=== PATIENT | female | born 1980 | race Caucasian/White ===

== ENCOUNTER 2017-04-19 11:47 | Inpatient (IN) | payer MEDICAID, OTHER ==
[~2017-04-19] VITALS: Ht 167.6 cm; Wt 218.4 kg
[~2017-04-19 11:47] MED LIST: ARIP15TA3 PO; CLON.5 PO; LAMO100 PO; NYST30OI6 TP; RIVA10 PO; SERT100T12 PO
[2017-04-19] MEDS ORDERED: OMEG1CAP82 PO (12:01)
[2017-04-19] MEDS ORDERED: PYRI100T2 PO (12:01)
[2017-04-19] MEDS ORDERED: IRON-24 PO (12:01)
[2017-04-19] MEDS ORDERED: SERT100T12 PO (12:01)
[2017-04-19] MEDS ORDERED: LEVO88TA4 PO (12:01)
[2017-04-19] MEDS ORDERED: GEMF600T3 PO (12:01)
[2017-04-19] MEDS ORDERED: FOLI0.8T PO (12:01)
[2017-04-19] MEDS ORDERED: ACET600C PO (12:01)
[2017-04-19] MEDS ORDERED: NYST15PO3 TP (12:01)
[2017-04-19 13:16] LABS: BASOPHILS # (AUTO) 0.03 K/uL (0.00-0.20); BASOPHILS % (AUTO) 0.4 % (0.0-2.0); EOSINOPHILS # (AUTO) 0.15 K/uL (0.00-0.70); EOSINOPHILS % (AUTO) 1.87 % (1.0-6.0); HEMATOCRIT 37.7 % (36-46); HEMOGLOBIN 12.6 g/dL (12.0-16.0); LYMPHOCYTES # (AUTO) 1.7 K/uL (1.0-4.8); LYMPHOCYTES % (AUTO) 21.4 % (22.0-44.0); MEAN CORPUSCULAR HEMOGLOBIN 29.1 pg (26.0-34.0); MEAN CORPUSCULAR HGB CONC 33.3 G/dL (31.0-37.0); MEAN CORPUSCULAR VOLUME 87 fL (80-100); MONOCYTES # (AUTO) 0.4 K/uL (0.1-1.0); MONOCYTES % (AUTO) 4.6 % (2.0-9.0); NEUTROPHILS # (AUTO) 5.6 K/uL (1.8-7.7); NEUTROPHILS % (AUTO) 71.7 % (40.0-70.0); PLATELET COUNT (AUTO) 254 K/uL (150-450); RED BLOOD CELL COUNT(AUTO) 4.33 MIL/uL (4.00-5.20); RED CELL DISTRIBUTION WIDTH 14.4 % (11.5-14.5); WHITE BLOOD COUNT (AUTO) 7.9 K/uL (4.5-11.0)
[2017-04-19 13:26] LABS: ANION GAP 11 mmol/L (8-16); CARBON DIOXIDE 25 mmol/L (22-29); CHLORIDE 105 mmol/L (98-107); CREATININE 0.61 mg/dL (0.60-1.30); GLOMERULAR FILTR. RATE CALC > 60 mL/min (>60); POTASSIUM 3.9 mmol/L (3.5-5.1); SODIUM SERUM 141 mmol/L (136-145); UREA NITROGEN, BLOOD 10 mg/dL (7-18)
[2017-04-19 13:34] LABS: ALANINE AMINOTRANSFERASE 57 U/L (12-78); ALBUMIN 3.1 g/dL (3.4-5.0); ASPARTATE AMINOTRANSFERASE 23 U/L (15-37); BILIRUBIN,TOTAL 0.3 mg/dL (0.1-1.0); TOTAL PROTEIN, SERUM 7.2 g/dL (6.4-8.2)
[2017-04-19] MEDS ORDERED: LEVO137T2 PO (13:55)
[2017-04-19] MEDS ORDERED: CLON1 PO (13:55)
[2017-04-19] MEDS ORDERED: RIVA20TA PO (13:55)
[2017-04-19] MEDS ORDERED: LORazepam 2 MG TABLET PO ONE (14:00)
[2017-04-19] MEDS ORDERED: ARIPiprazole 10 MG TABLET PO ONE (14:00)
[2017-04-19] MEDS ORDERED: HALOPERIDOL 5 MG TABLET PO PRN (14:30)
[2017-04-19] MEDS ORDERED: ClonazePAM 0.5 MG TABLET PO SCH (17:00)
[2017-04-19 17:08] VITALS: BP 134/95
[2017-04-19] MEDS ORDERED: CloNIDine HCL 0.1 MG TABLET PO PRN (18:15)
[2017-04-19] MEDS: SERTRALINE HCL 100 MG TABLET PO SCH (20:32)
[2017-04-19] MEDS ORDERED: SERTRALINE HCL 100 MG TABLET PO SCH (21:00)
[2017-04-19 22:46] LABS: APPEARANCE,URINE TURBID (CLEAR); GLUCOSE, URINE (UA) NEGATIVE (NEGATIVE); KETONES,URINE NEGATIVE (NEGATIVE); LEUKOCYTE ESTERASE ,URINE SMALL (NEGATIVE); OCCULT BLOOD,URINE NEGATIVE (NEGATIVE); PH,URINE 5.5 (5.0-8.0); PROTEIN,URINE NEGATIVE (NEGATIVE)
[2017-04-19 22:49] LABS: ADD UA MICROSCOPIC YES
[2017-04-19 22:54] LABS: AMORPHOUS SEDIMENT,UR Many /LPF (None Seen); RBC,URINE None Seen /HPF (0-2); WBC,URINE 0-2 /HPF (0-5)
[2017-04-20] MEDS: LEVOTHYROXINE SODIUM 137 MCG TABLET PO SCH (06:43)
[2017-04-20] MEDS: GEMFIBROZIL 600 MG TABLET PO SCH (06:43)
[2017-04-20 08:15] VITALS: BP 124/77
[2017-04-20] MEDS: ARIPiprazole 15 MG TABLET PO SCH (09:10)
[2017-04-20] MEDS: LamoTRIgine 100 MG TABLET PO SCH (09:10)
[2017-04-20] MEDS: NYSTATIN 15 GM POWDER BOTTLE TP SCH ×2 (09:12→16:15)
[2017-04-20 16:15] VITALS: BP 130/84
[2017-04-20] MEDS: LORazepam 2 MG TABLET PO PRN (16:15)
[2017-04-20] MEDS: RIVAROXABAN 20 MG TABLET PO SCH (17:35)
[2017-04-20] MEDS: ClonazePAM 0.5 MG TABLET PO SCH (20:22)
[2017-04-20] MEDS: SERTRALINE HCL 100 MG TABLET PO SCH (20:22)
[2017-04-20] MEDS: ZOLPIDEM TARTRATE 10 MG TABLET PO PRN (21:45)
[2017-04-21] MEDS: GEMFIBROZIL 600 MG TABLET PO SCH (06:38)
[2017-04-21] MEDS: LEVOTHYROXINE SODIUM 137 MCG TABLET PO SCH (06:38)
[2017-04-21 08:15] VITALS: BP 119/71
[2017-04-21] MEDS: NYSTATIN 15 GM POWDER BOTTLE TP SCH ×2 (08:29→17:06)
[2017-04-21] MEDS: ARIPiprazole 15 MG TABLET PO SCH (08:29)
[2017-04-21] MEDS: LamoTRIgine 100 MG TABLET PO SCH (08:29)
[2017-04-21] MEDS: ACETAMINOPHEN 325 MG TABLET PO PRN (14:30)
[2017-04-21 16:52] VITALS: BP 116/73
[2017-04-21] MEDS: RIVAROXABAN 20 MG TABLET PO SCH (18:05)
[2017-04-21] MEDS: SERTRALINE HCL 100 MG TABLET PO SCH (20:22)
[2017-04-21] MEDS: ClonazePAM 0.5 MG TABLET PO SCH (20:22)
[2017-04-21] MEDS: ZOLPIDEM TARTRATE 10 MG TABLET PO PRN (21:13)
[2017-04-22 04:20] VITALS: BP 133/91
[2017-04-22] MEDS: ACETAMINOPHEN 325 MG TABLET PO PRN (04:27)
[2017-04-22] MEDS: GEMFIBROZIL 600 MG TABLET PO SCH (06:41)
[2017-04-22] MEDS: LEVOTHYROXINE SODIUM 137 MCG TABLET PO SCH (06:41)
[2017-04-22] MEDS: LamoTRIgine 100 MG TABLET PO SCH (08:50)
[2017-04-22] MEDS: NYSTATIN 15 GM POWDER BOTTLE TP SCH ×2 (08:50→17:30)
[2017-04-22] MEDS: ARIPiprazole 15 MG TABLET PO SCH (08:50)
[2017-04-22 09:35] VITALS: BP 136/93
[2017-04-22] MEDS: RIVAROXABAN 20 MG TABLET PO SCH (17:27)
[2017-04-22] MEDS: LORazepam 2 MG TABLET PO PRN (18:29)
[2017-04-22 20:22] VITALS: BP 142/85
[2017-04-22] MEDS: ClonazePAM 0.5 MG TABLET PO SCH (20:51)
[2017-04-22] MEDS: SERTRALINE HCL 100 MG TABLET PO SCH (20:52)
[2017-04-22] MEDS: ZOLPIDEM TARTRATE 10 MG TABLET PO PRN (21:04)
[2017-04-23] MEDS: GEMFIBROZIL 600 MG TABLET PO SCH (06:45)
[2017-04-23] MEDS: LEVOTHYROXINE SODIUM 137 MCG TABLET PO SCH (06:45)
[2017-04-23 08:17] VITALS: BP 120/86
[2017-04-23] MEDS: LamoTRIgine 100 MG TABLET PO SCH (08:49)
[2017-04-23] MEDS: ARIPiprazole 15 MG TABLET PO SCH (08:50)
[2017-04-23] MEDS: NYSTATIN 15 GM POWDER BOTTLE TP SCH (08:50)
[2017-04-23] MEDS: LORazepam 2 MG TABLET PO PRN (08:51)
[2017-04-23 10:40] LABS: CHOL/HDL RATIO 6.3 (3.9-5.7)
== END 2017-04-23 13:15 | disposition home or self-care (01) | DRG 751 ==
LOC: EMS 11:48 → 3EI 16:11
PROVIDERS: ADMIT Psychiatry & Neurology Child & Adolescent Psychiatry; ATTEND Psychiatry & Neurology Child & Adolescent Psychiatry
DX: F33.2 Major depressive disorder, recurrent severe without psychotic features (principal); R45.851 Suicidal ideations; E66.01 Morbid (severe) obesity due to excess calories; E03.9 Hypothyroidism, unspecified; E78.5 Hyperlipidemia, unspecified; F40.00 Agoraphobia, unspecified; G47.33 Obstructive sleep apnea (adult) (pediatric); I10 Essential (primary) hypertension; K21.9 Gastro-esophageal reflux disease without esophagitis; N39.0 Urinary tract infection, site not specified; Z79.01 Long term (current) use of anticoagulants; Z81.8 Family history of other mental and behavioral disorders; Z86.59 Personal history of other mental and behavioral disorders; Z86.711 Personal history of pulmonary embolism; Z91.5 Personal history of self-harm
CPT/HCPCS: 99285; G0480

== ENCOUNTER 2018-06-30 11:55 | Inpatient (IN) | payer MEDICAID, OTHER ==
[~2018-06-30] VITALS: Ht 167.6 cm; Wt 219.6 kg
[~2018-06-30 11:55] MED LIST changes: +ARIP15TA2 PO; -ARIP15TA3 PO; -CLON.5 PO; +CLON1 PO; +GEMF600T5 PO; +LEVO137T2 PO; -RIVA10 PO; +RIVA20TA PO
[2018-06-30 12:53] LABS: BASOPHILS % (AUTO) 0.9 % (0.0-2.0); EOSINOPHILS % (AUTO) 2.4 % (1.0-6.0); HEMATOCRIT 40.5 % (36-46); HEMOGLOBIN 13.4 g/dL (12.0-16.0); LYMPHOCYTES # (AUTO) 1.6 K/uL (1.0-4.8); LYMPHOCYTES % (AUTO) 20.8 % (22.0-44.0); MEAN CORPUSCULAR HEMOGLOBIN 30.1 pg (26.0-34.0); MEAN CORPUSCULAR VOLUME 91 fL (80-100); MONOCYTES # (AUTO) 0.4 K/uL (0.1-1.0); MONOCYTES % (AUTO) 5.7 % (2.0-9.0); NEUTROPHILS # (AUTO) 5.4 K/uL (1.8-7.7); NEUTROPHILS % (AUTO) 70.2 % (40.0-70.0); PLATELET COUNT (AUTO) 316 K/uL (150-450); RED BLOOD CELL COUNT(AUTO) 4.45 MIL/uL (4.00-5.20); RED CELL DISTRIBUTION WIDTH 13.2 % (11.5-14.5)
[2018-06-30] MEDS ORDERED: ONDANSETRON HCL 4 MG TABLET PO ONE (13:00)
[2018-06-30 13:05] LABS: ANION GAP 6 mmol/L (8-16); CALCIUM, TOTAL 8.8 mg/dL (8.8-10.5); CARBON DIOXIDE 29 mmol/L (22-29); CHLORIDE 101 mmol/L (98-107); CREATININE 0.68 mg/dL (0.60-1.30); GLOMERULAR FILTR. RATE CALC > 60 mL/min (>60); GLUCOSE,RANDOM 114 mg/dL (70-110); POTASSIUM 4.4 mmol/L (3.5-5.1); SODIUM SERUM 136 mmol/L (136-145); UREA NITROGEN, BLOOD 16 mg/dL (7-18)
[2018-06-30 13:11] LABS: ALANINE AMINOTRANSFERASE 28 U/L (12-78); ALBUMIN 3.6 g/dL (3.4-5.0); ALKALINE PHOSPHATASE 61 U/L (46-116); ASPARTATE AMINOTRANSFERASE 16 U/L (15-37); BILIRUBIN,TOTAL 0.4 mg/dL (0.1-1.0); TOTAL PROTEIN, SERUM 8.2 g/dL (6.4-8.2)
[2018-06-30] MEDS ORDERED: QUEtiapine FUMARATE 100 MG TABLET PO PRN (13:45)
[2018-06-30] MEDS ORDERED: LOPERAMIDE HCL 2 MG CAPSULE PO PRN (13:45)
[2018-06-30] MEDS ORDERED: MAGNESIUM HYDROXIDE SUSPENSION 30 ML UDCUP PO PRN (13:45)
[2018-06-30] MEDS ORDERED: ZOLPIDEM TARTRATE 10 MG TABLET PO PRN (13:45)
[2018-06-30] MEDS ORDERED: GuaiFENesin/D-METHORPHAN [SUGAR-FREE] 200-20MG/10 ML SYRUP UDCUP PO PRN (13:45)
[2018-06-30] MEDS ORDERED: TUBERCULIN, PURIFIED PROTEIN DERIVATIVE 5 TU/0.1 ML SYG ID ONE (13:45)
[2018-06-30] MEDS ORDERED: HydrOXYzine PAMOATE 50 MG CAPSULE PO PRN (13:45)
[2018-06-30] MEDS ORDERED: MAG HYDROX/AL HYDROX/SIMETH ES 30 ML SUSPENSION UDCUP PO PRN (13:45)
[2018-06-30] MEDS ORDERED: LORazepam 2 MG TABLET PO PRN (13:45)
[2018-06-30] MEDS ORDERED: PROMETHAZINE HCL 25 MG TABLET PO PRN (13:45)
[2018-06-30 14:08] LABS: HCG,QUANTITATIVE < 1 mIU/mL (0-6)
[2018-06-30] MEDS: THIAMINE HCL 100 MG TABLET PO SCH (16:54)
[2018-06-30 17:33] VITALS: BP 133/87
[2018-06-30] MEDS: ARIPiprazole 15 MG TABLET PO SCH (20:37)
[2018-06-30] MEDS ORDERED: LamoTRIgine 100 MG TABLET PO SCH ×2 (21:00)
[2018-06-30] MEDS ORDERED: ARIPiprazole 15 MG TABLET PO SCH (21:00)
[2018-07-01 06:45] LABS: BASOPHILS % (AUTO) 0.7 % (0.0-2.0); EOSINOPHILS % (AUTO) 2.4 % (1.0-6.0); LYMPHOCYTES # (AUTO) 2.1 K/uL (1.0-4.8); MEAN CORPUSCULAR HEMOGLOBIN 29.9 pg (26.0-34.0); MEAN CORPUSCULAR HGB CONC 33.4 G/dL (31.0-37.0); MEAN CORPUSCULAR VOLUME 89 fL (80-100); MONOCYTES # (AUTO) 0.5 K/uL (0.1-1.0); MONOCYTES % (AUTO) 6.6 % (2.0-9.0); NEUTROPHILS # (AUTO) 4.5 K/uL (1.8-7.7); NEUTROPHILS % (AUTO) 61.3 % (40.0-70.0); PLATELET COUNT (AUTO) 292 K/uL (150-450); RED BLOOD CELL COUNT(AUTO) 4.03 MIL/uL (4.00-5.20); RED CELL DISTRIBUTION WIDTH 13.5 % (11.5-14.5)
[2018-07-01] MEDS: LEVOTHYROXINE SODIUM 137 MCG TABLET PO SCH (07:01)
[2018-07-01] MEDS: GEMFIBROZIL 600 MG TABLET PO SCH (07:01)
[2018-07-01 07:03] LABS: HEMOGLOBIN A1C 5.8 % (4.5-6.2)
[2018-07-01 07:09] LABS: ALANINE AMINOTRANSFERASE 29 U/L (12-78); ALBUMIN 3.3 g/dL (3.4-5.0); ALKALINE PHOSPHATASE 52 U/L (46-116); ANION GAP 5 mmol/L (8-16); ASPARTATE AMINOTRANSFERASE 17 U/L (15-37); BILIRUBIN,TOTAL 0.3 mg/dL (0.1-1.0); CALCIUM, TOTAL 8.7 mg/dL (8.8-10.5); CARBON DIOXIDE 29 mmol/L (22-29); CHLORIDE 103 mmol/L (98-107); CHOL/HDL RATIO 5.4 (3.9-5.7); CHOLESTEROL 130 mg/dL (131-200); CREATININE 0.76 mg/dL (0.60-1.30); FREE T4 (FREE THYROXINE) 0.86 ng/dL (0.76-1.46); GLOMERULAR FILTR. RATE CALC > 60 mL/min (>60); GLUCOSE,RANDOM 113 mg/dL (70-110); HDL CHOLESTEROL 24 mg/dL (40-60); LDL CHOL (CALC.) 81 mg/dL (0-130); POTASSIUM 3.9 mmol/L (3.5-5.1); SODIUM SERUM 137 mmol/L (136-145); THYROID STIMULATING HORMONE 2.59 uIU/mL (0.36-3.74); TOTAL PROTEIN, SERUM 7.4 g/dL (6.4-8.2); TRIGLYCERIDES 127 mg/dL (15-150); UREA NITROGEN, BLOOD 12 mg/dL (7-18)
[2018-07-01] MEDS: ACETAMINOPHEN 325 MG TABLET PO PRN ×2 (08:48→16:57)
[2018-07-01] MEDS: SERTRALINE HCL 100 MG TABLET PO SCH (08:49)
[2018-07-01] MEDS: FOLIC ACID 1 MG TABLET PO SCH (08:49)
[2018-07-01] MEDS: MULTIVITAMINS WITH MINERALS, THERAPEUTIC TABLET PO SCH (08:50)
[2018-07-01] MEDS: THIAMINE HCL 100 MG TABLET PO SCH ×2 (08:50→16:58)
[2018-07-01] MEDS: NYSTATIN 30 GM CREAM TP SCH ×2 (08:51→16:58)
[2018-07-01 09:55] VITALS: BP 127/72
[2018-07-01 16:30] VITALS: BP 126/66
[2018-07-01] MEDS: RIVAROXABAN 20 MG TABLET PO SCH (16:58)
[2018-07-01] MEDS: LamoTRIgine 100 MG TABLET PO SCH (20:30)
[2018-07-01] MEDS: ARIPiprazole 15 MG TABLET PO SCH (20:32)
[2018-07-01] MEDS ORDERED: LamoTRIgine 25 MG TABLET PO SCH (21:00)
[2018-07-02 04:47] VITALS: BP 123/85
[2018-07-02] MEDS: ACETAMINOPHEN 325 MG TABLET PO PRN ×2 (04:48→21:47)
[2018-07-02] MEDS: LEVOTHYROXINE SODIUM 137 MCG TABLET PO SCH (06:56)
[2018-07-02] MEDS: GEMFIBROZIL 600 MG TABLET PO SCH (06:56)
[2018-07-02] MEDS: FOLIC ACID 1 MG TABLET PO SCH (08:14)
[2018-07-02] MEDS: NYSTATIN 30 GM CREAM TP SCH ×2 (08:15→16:09)
[2018-07-02] MEDS: MULTIVITAMINS WITH MINERALS, THERAPEUTIC TABLET PO SCH (08:15)
[2018-07-02] MEDS: THIAMINE HCL 100 MG TABLET PO SCH ×2 (08:15→16:09)
[2018-07-02] MEDS: SERTRALINE HCL 100 MG TABLET PO SCH (09:43)
[2018-07-02 11:00] VITALS: BP 136/73
[2018-07-02] MEDS: RIVAROXABAN 20 MG TABLET PO SCH (17:24)
[2018-07-02] MEDS: LamoTRIgine 100 MG TABLET PO SCH (20:13)
[2018-07-02] MEDS: ARIPiprazole 15 MG TABLET PO SCH (20:14)
[2018-07-02 20:17] VITALS: BP 137/67
[2018-07-02] MEDS ORDERED: LamoTRIgine 25 MG TABLET PO SCH (21:00)
[2018-07-02 21:52] VITALS: BP 132/78
[2018-07-03] MEDS: ACETAMINOPHEN 325 MG TABLET PO PRN (05:54)
[2018-07-03 06:00] VITALS: BP 127/88
[2018-07-03] MEDS: GEMFIBROZIL 600 MG TABLET PO SCH (07:00)
[2018-07-03] MEDS: LEVOTHYROXINE SODIUM 137 MCG TABLET PO SCH (07:00)
[2018-07-03] MEDS: SERTRALINE HCL 100 MG TABLET PO SCH (08:28)
[2018-07-03] MEDS: THIAMINE HCL 100 MG TABLET PO SCH ×2 (08:28→17:18)
[2018-07-03] MEDS: FOLIC ACID 1 MG TABLET PO SCH (08:28)
[2018-07-03] MEDS: NYSTATIN 30 GM CREAM TP SCH ×2 (08:29→17:18)
[2018-07-03] MEDS: MULTIVITAMINS WITH MINERALS, THERAPEUTIC TABLET PO SCH (08:29)
[2018-07-03 09:00] VITALS: BP 137/58
[2018-07-03 11:16] VITALS: BP 138/86
[2018-07-03] MEDS: IBUPROFEN 800 MG TABLET PO PRN ×2 (11:16→17:19)
[2018-07-03] MEDS ORDERED: LAMO100 PO (15:37)
[2018-07-03] MEDS ORDERED: ARIP15TA2 PO (15:37)
[2018-07-03] MEDS ORDERED: LAMO25 PO (15:37)
[2018-07-03] MEDS ORDERED: SERT100T12 PO (15:37)
[2018-07-03] MEDS: RIVAROXABAN 20 MG TABLET PO SCH (17:18)
[2018-07-03 17:19] VITALS: BP 128/70
[2018-07-03] MEDS: LamoTRIgine 100 MG TABLET PO SCH (20:11)
[2018-07-03] MEDS: ARIPiprazole 15 MG TABLET PO SCH (20:11)
[2018-07-03] MEDS ORDERED: LamoTRIgine 25 MG TABLET PO SCH (21:00)
[2018-07-04] MEDS: IBUPROFEN 800 MG TABLET PO PRN (00:36)
[2018-07-04 00:37] VITALS: BP 124/71
[2018-07-04] MEDS: GEMFIBROZIL 600 MG TABLET PO SCH (06:51)
[2018-07-04] MEDS: LEVOTHYROXINE SODIUM 137 MCG TABLET PO SCH (06:51)
[2018-07-04 08:25] VITALS: BP 134/86
[2018-07-04] MEDS: FOLIC ACID 1 MG TABLET PO SCH (09:36)
[2018-07-04] MEDS: MULTIVITAMINS WITH MINERALS, THERAPEUTIC TABLET PO SCH (09:36)
[2018-07-04] MEDS: THIAMINE HCL 100 MG TABLET PO SCH (09:36)
[2018-07-04] MEDS: NYSTATIN 30 GM CREAM TP SCH (09:37)
[2018-07-04] MEDS: SERTRALINE HCL 100 MG TABLET PO SCH (09:37)
== END 2018-07-04 13:00 | disposition home or self-care (01) | DRG 753 ==
LOC: EMS 11:57 → 3EI 14:32
PROVIDERS: ADMIT Psychiatry & Neurology Psychiatry; ATTEND Psychiatry & Neurology Psychiatry
PROC: 3E0234Z Introduction of Serum, Toxoid and Vaccine into Muscle, Percutaneous Approach (ICD-10-PCS; principal; 2018-07-03)
DX: F31.9 Bipolar disorder, unspecified (principal); I26.99 Other pulmonary embolism without acute cor pulmonale; L51.1 Stevens-Johnson syndrome; R45.851 Suicidal ideations; E66.01 Morbid (severe) obesity due to excess calories; E78.5 Hyperlipidemia, unspecified; E03.9 Hypothyroidism, unspecified; G47.33 Obstructive sleep apnea (adult) (pediatric); L30.9 Dermatitis, unspecified; F40.00 Agoraphobia, unspecified; I10 Essential (primary) hypertension; F41.9 Anxiety disorder, unspecified; Z68.45 Body mass index [BMI] 70 or greater, adult; Z91.19 Patient's noncompliance with other medical treatment and regimen; Z88.8 Allergy status to other drugs, medicaments and biological substances; Z86.711 Personal history of pulmonary embolism; Z79.01 Long term (current) use of anticoagulants; Z81.8 Family history of other mental and behavioral disorders; Z82.49 Family history of ischemic heart disease and other diseases of the circulatory system; Z23 Encounter for immunization
CPT/HCPCS: 83036; 84439; 84443; 86592; 90686; 94660; G0480; Q0162

== ENCOUNTER 2018-10-30 13:39 | Inpatient (IN) | payer MEDICAID, OTHER ==
[~2018-10-30] VITALS: Ht 167.6 cm; Wt 224.0 kg
[~2018-10-30 13:39] MED LIST changes: -CLON1 PO; +LAMO25 PO
[2018-10-30] MEDS ORDERED: ACETAMINOPHEN 325 MG TABLET PO PRN (15:15)
[2018-10-30 15:31] LABS: BASOPHILS % (AUTO) 0.8 % (0.0-2.0); EOSINOPHILS % (AUTO) 1.3 % (1.0-6.0); HEMATOCRIT 39.7 % (36-46); HEMOGLOBIN 12.9 g/dL (12.0-16.0); LYMPHOCYTES # (AUTO) 1.5 K/uL (1.0-4.8); MEAN CORPUSCULAR HEMOGLOBIN 28.8 pg (26.0-34.0); MEAN CORPUSCULAR HGB CONC 32.6 G/dL (31.0-37.0); MEAN CORPUSCULAR VOLUME 88 fL (80-100); MONOCYTES # (AUTO) 0.4 K/uL (0.1-1.0); MONOCYTES % (AUTO) 4.9 % (2.0-9.0); NEUTROPHILS # (AUTO) 5.8 K/uL (1.8-7.7); PLATELET COUNT (AUTO) 317 K/uL (150-450); RED BLOOD CELL COUNT(AUTO) 4.49 MIL/uL (4.00-5.20); RED CELL DISTRIBUTION WIDTH 13.8 % (11.5-14.5)
[2018-10-30 15:44] LABS: ANION GAP 10 mmol/L (8-16); CALCIUM, TOTAL 9.3 mg/dL (8.8-10.5); CARBON DIOXIDE 26 mmol/L (22-29); CHLORIDE 103 mmol/L (98-107); CREATININE 0.65 mg/dL (0.60-1.30); GLOMERULAR FILTR. RATE CALC > 60 mL/min (>60); GLUCOSE,RANDOM 103 mg/dL (70-110); POTASSIUM 4.3 mmol/L (3.5-5.1); SODIUM SERUM 139 mmol/L (136-145); UREA NITROGEN, BLOOD 10 mg/dL (7-18)
[2018-10-30 15:59] LABS: ALANINE AMINOTRANSFERASE 37 U/L (12-78); ALBUMIN 3.4 g/dL (3.4-5.0); ALKALINE PHOSPHATASE 55 U/L (46-116); ASPARTATE AMINOTRANSFERASE 25 U/L (15-37); BILIRUBIN,TOTAL 0.3 mg/dL (0.1-1.0); TOTAL PROTEIN, SERUM 7.7 g/dL (6.4-8.2)
[2018-10-30 17:53] VITALS: BP 116/54
[2018-10-30] MEDS ORDERED: NICOTINE 14 MG/24 HOUR PATCH TD PRN (18:30)
[2018-10-30] MEDS ORDERED: LOPERAMIDE HCL 2 MG CAPSULE PO PRN (18:30)
[2018-10-30] MEDS ORDERED: DOCUSATE SODIUM 100 MG CAPSULE PO PRN (18:30)
[2018-10-30] MEDS ORDERED: MAGNESIUM HYDROXIDE SUSPENSION 30 ML UDCUP PO PRN (18:30)
[2018-10-30] MEDS ORDERED: PETROLATUM,WHITE 71 GM JELLY TP PRN (18:30)
[2018-10-30] MEDS ORDERED: ONDANSETRON HCL 4 MG TABLET PO PRN (18:30)
[2018-10-30] MEDS ORDERED: CloNIDine HCL 0.1 MG TABLET PO PRN (18:30)
[2018-10-30] MEDS ORDERED: GuaiFENesin/D-METHORPHAN [SUGAR-FREE] 200-20MG/10 ML SYRUP UDCUP PO PRN (18:30)
[2018-10-30] MEDS ORDERED: MAG HYDROX/AL HYDROX/SIMETH ES 30 ML SUSPENSION UDCUP PO PRN (18:30)
[2018-10-30] MEDS ORDERED: ALBUTEROL SULFATE HFA 90 MCG/PUFF 8 GM INHALER IH PRN (18:30)
[2018-10-30] MEDS: ZOLPIDEM TARTRATE 10 MG TABLET PO PRN (21:21)
[2018-10-30] MEDS: LORazepam 2 MG TABLET PO PRN (22:35)
[2018-10-31 02:10] VITALS: BP 129/69
[2018-10-31] MEDS: HALOPERIDOL 5 MG TABLET PO PRN ×2 (02:12→20:26)
[2018-10-31] MEDS: GEMFIBROZIL 600 MG TABLET PO SCH (06:11)
[2018-10-31] MEDS: LEVOTHYROXINE SODIUM 137 MCG TABLET PO SCH (06:11)
[2018-10-31 06:34] LABS: EOSINOPHILS % (AUTO) 1.1 % (1.0-6.0); HEMOGLOBIN 12.2 g/dL (12.0-16.0); LYMPHOCYTES % (AUTO) 24.4 % (22.0-44.0); MEAN CORPUSCULAR HEMOGLOBIN 28.8 pg (26.0-34.0); MEAN CORPUSCULAR HGB CONC 32.1 G/dL (31.0-37.0); MEAN CORPUSCULAR VOLUME 90 fL (80-100); MONOCYTES # (AUTO) 0.4 K/uL (0.1-1.0); MONOCYTES % (AUTO) 5.3 % (2.0-9.0); NEUTROPHILS # (AUTO) 5.6 K/uL (1.8-7.7); NEUTROPHILS % (AUTO) 68.2 % (40.0-70.0); PLATELET COUNT (AUTO) 283 K/uL (150-450); RED BLOOD CELL COUNT(AUTO) 4.23 MIL/uL (4.00-5.20); RED CELL DISTRIBUTION WIDTH 13.9 % (11.5-14.5)
[2018-10-31 06:56] LABS: ALANINE AMINOTRANSFERASE 31 U/L (12-78); ALBUMIN 3.2 g/dL (3.4-5.0); ALKALINE PHOSPHATASE 50 U/L (46-116); ANION GAP 11 mmol/L (8-16); ASPARTATE AMINOTRANSFERASE 26 U/L (15-37); BILIRUBIN,TOTAL 0.3 mg/dL (0.1-1.0); CALCIUM, TOTAL 9.2 mg/dL (8.8-10.5); CARBON DIOXIDE 26 mmol/L (22-29); CHLORIDE 101 mmol/L (98-107); CHOL/HDL RATIO 5.4 (3.9-5.7); CHOLESTEROL 156 mg/dL (131-200); CREATININE 0.61 mg/dL (0.60-1.30); GLOMERULAR FILTR. RATE CALC > 60 mL/min (>60); GLUCOSE,RANDOM 112 mg/dL (70-110); HDL CHOLESTEROL 29 mg/dL (40-60); LDL CHOL (CALC.) 107 mg/dL (0-130); POTASSIUM 4.1 mmol/L (3.5-5.1); SODIUM SERUM 138 mmol/L (136-145); THYROID STIMULATING HORMONE 3.61 uIU/mL (0.36-3.74); TOTAL PROTEIN, SERUM 7.1 g/dL (6.4-8.2); TRIGLYCERIDES 101 mg/dL (15-150); UREA NITROGEN, BLOOD 13 mg/dL (7-18)
[2018-10-31 07:29] LABS: HEMOGLOBIN A1C 6.1 % (4.5-6.2)
[2018-10-31 08:05] VITALS: BP 145/88
[2018-10-31] MEDS: RIVAROXABAN 20 MG TABLET PO SCH (17:02)
[2018-10-31 17:19] VITALS: BP 127/80
[2018-10-31] MEDS: LORazepam 2 MG TABLET PO PRN (18:06)
[2018-10-31] MEDS: ARIPiprazole 15 MG TABLET PO SCH (20:26)
[2018-10-31] MEDS: LamoTRIgine 100 MG TABLET PO SCH (20:26)
[2018-11-01 02:28] VITALS: BP 140/90
[2018-11-01] MEDS: LORazepam 2 MG TABLET PO PRN (02:29)
[2018-11-01] MEDS: LEVOTHYROXINE SODIUM 137 MCG TABLET PO SCH (06:56)
[2018-11-01] MEDS: GEMFIBROZIL 600 MG TABLET PO SCH (06:58)
[2018-11-01 08:05] VITALS: BP 149/94
[2018-11-01] MEDS: IBUPROFEN 400 MG TABLET PO PRN (09:31)
[2018-11-01] MEDS: SERTRALINE HCL 50 MG TABLET PO SCH (09:31)
[2018-11-01] MEDS: RIVAROXABAN 20 MG TABLET PO SCH (17:22)
[2018-11-01] MEDS: LamoTRIgine 100 MG TABLET PO SCH (20:18)
[2018-11-01] MEDS: ARIPiprazole 15 MG TABLET PO SCH (20:18)
[2018-11-01 20:23] VITALS: BP 138/95
[2018-11-01 23:56] VITALS: BP 145/90
[2018-11-02] MEDS: IBUPROFEN 400 MG TABLET PO PRN (00:01)
[2018-11-02] MEDS: LEVOTHYROXINE SODIUM 137 MCG TABLET PO SCH (06:29)
[2018-11-02] MEDS: GEMFIBROZIL 600 MG TABLET PO SCH (06:29)
[2018-11-02 08:05] VITALS: BP 115/75
[2018-11-02] MEDS: SERTRALINE HCL 50 MG TABLET PO SCH (09:37)
[2018-11-02 16:58] VITALS: BP 136/86
[2018-11-02] MEDS: RIVAROXABAN 20 MG TABLET PO SCH (16:58)
[2018-11-02] MEDS: LamoTRIgine 100 MG TABLET PO SCH (20:12)
[2018-11-02] MEDS: ARIPiprazole 15 MG TABLET PO SCH (20:12)
[2018-11-02] MEDS: ZOLPIDEM TARTRATE 10 MG TABLET PO PRN (20:54)
[2018-11-03 00:13] VITALS: BP 135/83
[2018-11-03 01:10] VITALS: BP 137/86
[2018-11-03] MEDS: IBUPROFEN 400 MG TABLET PO PRN ×2 (01:13→09:13)
[2018-11-03] MEDS: LEVOTHYROXINE SODIUM 137 MCG TABLET PO SCH (06:26)
[2018-11-03] MEDS: GEMFIBROZIL 600 MG TABLET PO SCH (06:29)
[2018-11-03] MEDS: SERTRALINE HCL 50 MG TABLET PO SCH (08:57)
[2018-11-03 09:00] VITALS: BP 127/85
[2018-11-03] MEDS: LORazepam 2 MG TABLET PO PRN (11:27)
[2018-11-03] MEDS ORDERED: ARIP15TA2 PO (11:45)
[2018-11-03] MEDS ORDERED: SERT100T12 PO (11:46)
== END 2018-11-03 13:30 | disposition home or self-care (01) | DRG 753 ==
LOC: EMS 13:40 → 3EI 16:20
PROVIDERS: ADMIT Psychiatry & Neurology Psychiatry; ATTEND Psychiatry & Neurology Psychiatry
PROC: 5A09357 Assistance with Respiratory Ventilation, Less than 24 Consecutive Hours, Continuous Positive Airway Pressure (ICD-10-PCS; principal; 2018-10-30)
DX: F31.4 Bipolar disorder, current episode depressed, severe, without psychotic features (principal); E66.01 Morbid (severe) obesity due to excess calories; E78.5 Hyperlipidemia, unspecified; E03.9 Hypothyroidism, unspecified; G47.33 Obstructive sleep apnea (adult) (pediatric); R45.87 Impulsiveness; F41.9 Anxiety disorder, unspecified; I10 Essential (primary) hypertension; Z79.01 Long term (current) use of anticoagulants; Z86.711 Personal history of pulmonary embolism; Z86.718 Personal history of other venous thrombosis and embolism; Z91.5 Personal history of self-harm
CPT/HCPCS: 83036; 84443; 94660; G0480; Q0162